=== PATIENT | female | born 1935 | race Caucasian/White ===

== ENCOUNTER → 2017-06-08 | Outpatient (CLI) | payer MEDICARE, MEDICAID | LOC: CFH 13:55 | DX: Z13.820 Encounter for screening for osteoporosis (principal); M81.0 Age-related osteoporosis without current pathological fracture; M85.88 Other specified disorders of bone density and structure, other site | CPT/HCPCS: 77080 ==

== ENCOUNTER 2017-12-06 19:27 | Inpatient (IN) | payer MEDICARE, MEDICAID ==
[~2017-12-06] VITALS: Ht 152.4 cm; Wt 60.1 kg
[~2017-12-06 19:27] MED LIST: ASPI-650 PO; ENAL2.5T PO; LOVA10TA PO; ONDA4TAB10 PO; ONDA8TAB12 PO; TRAM100T13 PO
[2017-12-06] MEDS ORDERED: ONDANSETRON 2MG/ML, 2ML IVPush ONE (20:00)
[2017-12-06] MEDS ORDERED: SODIUM CHLORIDE FLUSH 10ML SYR IVF ONE (20:00)
[2017-12-06] MEDS ORDERED: SODIUM CHLORIDE 0.9% 1,000ML IVBOLUS ONE (20:00)
[2017-12-06] MEDS: FENTANYL PF 100 MCG/2ML IVPush PRN ×2 (20:00→20:56)
[2017-12-06] MEDS ORDERED: FENTANYL PF 100 MCG/2ML ONE (20:02)
[2017-12-06 20:16] LABS: INTERNATIONAL NORMALIZED RATIO 1.26 (0.93-1.1)
[2017-12-06 20:22] LABS: ALANINE AMINOTRANSFERASE 13 U/L (12-78); ALBUMIN 2.2 g/dL (3.4-5.0); ANION GAP 23 mmol/L (5-15); CALCIUM 8.3 mg/dL (8.5-10.1); CHLORIDE 104 mmol/L (98-107)
[2017-12-06 20:24] LABS: ALKALINE PHOSPHATASE 205 U/L (45-117); TOTAL PROTEIN 5.6 g/dL (6.4-8.2)
[2017-12-06 20:38] LABS: MEAN CORPUSCULAR HEMOGLOBIN 30.4 pg (27.0-34.8); MEAN CORPUSCULAR HGB CONC 32.4 g/dL (32.4-35.8); MEAN CORPUSCULAR VOLUME 93.8 fL (80-100); MEAN PLATELET VOLUME 9.1 fL (7.4-10.4); PLATELET COUNT 415 x10^3/uL (130-400); RED BLOOD COUNT 5.18 x10^6/uL (3.82-5.3); RED CELL DISTRIBUTION WIDTH 17.9 % (9.6-15.2)
[2017-12-06 20:39] LABS: MD YES
[2017-12-06] MEDS ORDERED: ALBU1.25 NEB (20:39)
[2017-12-06 20:42] LABS: BAND#(MANUAL) 5.61 x10^3/uL; BANDS%(MANUAL) 22 % (0-7); LYMPH#(MANUAL) 1.02 x10^3/uL (1-3.4); LYMPHS% (MANUAL) 4 % (22-44); METAMYELOCYTES# (MANUAL) 1.28 x10^3/uL (0-0); METAMYELOCYTES% (MANUAL) 5 % (0-1); MONOS#(MANUAL) 2.04 x10^3/uL (0.3-2.7); MONOS% (MANUAL) 8 % (2-9); NRBC % (MANUAL) 1 % (0-1); SEG#(MANUAL) 15.56 x10^3/uL (1.8-6.8); SEGS% (MANUAL) 61 % (42-75)
[2017-12-06 20:43] LABS: <PLATELET ESTIMATE> INCREASED; HYPOCHROMIA 1+; SMUDGE CELLS 1+; TOXIC GRAN 1+
[2017-12-06 20:44] LABS: LARGE PLATELETS 1+
[2017-12-06 20:45] LABS: OVALOCYTES 1+
[2017-12-06] MEDS ORDERED: CEFTRIAXONE PMX 1GM/50ML 50 ML IV ONE (21:00)
[2017-12-06] MEDS ORDERED: SODIUM CHLORIDE 0.9% 1,000 ML IV ONE (21:08)
[2017-12-06] MEDS ORDERED: CEFTRIAXONE PMX 1GM/50ML 50 ML ONE (21:09)
[2017-12-06 22:55] LABS: MICROSCOPIC INDICATED
[2017-12-06 23:06] LABS: CULTURE INDICATED? YES
[2017-12-06 23:16] VITALS: BP 128/87
[2017-12-06 23:26] LABS: CLOSTRIDIUM DIFFICILE ANTIGEN POSITIVE; CLOSTRIDIUM DIFFICILE TOXIN POSITIVE (Negative)
[2017-12-07] MEDS ORDERED: LACTATED RINGERS 1,000 ML IV SCH ×2 (01:30→02:00)
[2017-12-07 01:34] VITALS: BP 122/84
[2017-12-07] MEDS ORDERED: ONDANSETRON 2MG/ML, 2ML IVPush PRN (02:00)
[2017-12-07] MEDS: VANCOMYCIN 50 MG/ML ORAL SUSP PO SCH ×2 (02:13→08:23)
[2017-12-07] MEDS ORDERED: METRONIDAZOLE PMX 500MG/100ML 100 ML IV SCH (03:00)
[2017-12-07] MEDS ORDERED: MORPHINE SULFATE 4 MG/ML, 1ML ONE ×3 (03:10→05:45)
[2017-12-07] MEDS: morphine SULFATE 10 MG/ML, 1ML IVPush PRN ×3 (03:12→05:51)
[2017-12-07] MEDS ORDERED: ALBUTEROL SULFATE 2.5 MG/3 ML NPPB PRN (04:00)
[2017-12-07 05:52] LABS: MEAN CORPUSCULAR HEMOGLOBIN 30.2 pg (27.0-34.8); MEAN CORPUSCULAR HGB CONC 32.3 g/dL (32.4-35.8); MEAN CORPUSCULAR VOLUME 93.5 fL (80-100); MEAN PLATELET VOLUME 9.4 fL (7.4-10.4); PLATELET COUNT 383 x10^3/uL (130-400); RED BLOOD COUNT 5.29 x10^6/uL (3.82-5.3); RED CELL DISTRIBUTION WIDTH 18.3 % (9.6-15.2)
[2017-12-07 06:03] LABS: ANION GAP 17 mmol/L (5-15); CALCIUM 8.1 mg/dL (8.5-10.1); CHLORIDE 109 mmol/L (98-107)
[2017-12-07 06:04] LABS: CREATININE 2.25 mg/dL (0.55-1.02)
[2017-12-07 06:13] LABS: MD YES
[2017-12-07 06:18] LABS: BAND#(MANUAL) 8.28 x10^3/uL; BANDS%(MANUAL) 38 % (0-7); BASOS#(MANUAL) 0.22 x10^3/uL (0-0.1); BASOS% (MANUAL) 1 % (0-1); LYMPH#(MANUAL) 1.96 x10^3/uL (1-3.4); LYMPHS% (MANUAL) 9 % (22-44); METAMYELOCYTES# (MANUAL) 0.87 x10^3/uL (0-0); METAMYELOCYTES% (MANUAL) 4 % (0-1); MONOS#(MANUAL) 0.87 x10^3/uL (0.3-2.7); MONOS% (MANUAL) 4 % (2-9); SEG#(MANUAL) 9.59 x10^3/uL (1.8-6.8); SEGS% (MANUAL) 44 % (42-75)
[2017-12-07 06:19] LABS: ANISOCYTOSIS 1+; OVALOCYTES 1+
[2017-12-07 06:20] LABS: <PLATELET ESTIMATE> ADEQUATE; LARGE PLATELETS 1+
[2017-12-07] MEDS ORDERED: FAMOTIDINE 20 MG/2 ML IVPush SCH (09:00)
[2017-12-08] MEDS ORDERED: LACTATED RINGERS 1,000 ML IV SCH (01:30)
[2017-12-08] MEDS ORDERED: FAMOTIDINE 20 MG TABLET PO SCH (09:00)
== END 2017-12-07 13:00 | disposition expired | DRG 871 ==
LOC: ED 21:03 → EDIP 21:44 → 3NW 22:54
PROVIDERS: ADMIT Internal Medicine; ATTEND Internal Medicine
DX: A41.4 Sepsis due to anaerobes (principal); R65.21 Severe sepsis with septic shock; A04.72 Enterocolitis due to Clostridium difficile, not specified as recurrent; N17.9 Acute kidney failure, unspecified; C78.7 Secondary malignant neoplasm of liver and intrahepatic bile duct; N39.0 Urinary tract infection, site not specified; K55.9 Vascular disorder of intestine, unspecified; K56.7 Ileus, unspecified; Z66 Do not resuscitate; E78.00 Pure hypercholesterolemia, unspecified; E83.51 Hypocalcemia; E86.0 Dehydration; E87.5 Hyperkalemia; E86.1 Hypovolemia; I10 Essential (primary) hypertension; Z88.8 Allergy status to other drugs, medicaments and biological substances; Z87.891 Personal history of nicotine dependence
CPT/HCPCS: 36415; 74022; 74176; 80048; 80053; 81001; 83605; 83690; 83735; 85025; 85610; 87040; 87086; 87324; 89055; 93005; 96361; 96365; 96375; 96376; 99291; J0696; J2405; J3010; J3370; J2270; J7030; J7120; S0028